=== PATIENT | male | born 1985 | race Caucasian/White ===

== ENCOUNTER 2018-10-29 09:25 | Emergency (ER) | payer MEDICAID, OTHER ==
[~2018-10-29] VITALS: Ht 170.2 cm; Wt 98.5 kg
[2018-10-29 09:50] VITALS: Ht 170.2 cm; Wt 98.5 kg
[2018-10-29] MEDS ORDERED: ONDANSETRON (ODT) 4 MG TAB ODT STA (12:10)
[2018-10-29] MEDS ORDERED: NAPR-985 PO (12:17)
[2018-10-29] MEDS ORDERED: HYDR-4011 PO (12:17)
[2018-10-29] MEDS ORDERED: HYDROCODONE/APAP (5/325) TAB PO ONE (12:30)
[2018-10-29 13:03] VITALS: BP 152/89; PULSE 110; RESP 16
--- NOTE | 2018-10-29 13:10 | ERD ---
ER Documentation Chief Complaint Chief Complaint Complains of left hand ppain after hitting a refrigerator HPI 33-year-old male presenting with pain to left hand. Patient states that he had a refrigerator and it caused him pain. This happened yesterday. He has not taken medications. He is right-hand dominant. Denies medical problems. NKDA. Surgical history denies. Social history denies ROS All systems reviewed and are negative except as per history of present illness. Medications Home Meds Active Scripts Naproxen* (Naprosyn*) 500 Mg Tablet, 500 MG PO BID PRN for PAIN AND/OR INFLAMMATION, #30 TAB Prov:SKY MORENO PA-C 10/29/18 Hydrocodone/Acetaminophen (Goddard 5-325 Tablet) 1 Each Tablet, 1 TAB PO Q6H PRN for PAIN, #7 TAB Prov:SKY MORENO PA-C 10/29/18 Allergies Allergies: Coded Allergies: No Known Allergy (Unverified , 10/29/18) PMhx/Soc Medical and Surgical Hx: pt denies Medical Hx, pt denies Surgical Hx Hx Alcohol Use: No Hx Substance Use: No Hx Tobacco Use: No Smoking Status: Never smoker FmHx Family History: No diabetes, No coronary disease, No other Physical Exam Vitals Vital Signs Date Temp Pulse Resp B/P (MAP) Pulse Ox O2 O2 Flow FiO2 Time Delivery Rate 10/29/18 100.8 110 16 152/89 98 Room Air 13:03 (110) 10/29/18 98.7 115 20 141/92 98 09:50 (108) Physical Exam GENERAL: The patient is well-appearing, well-nourished, in no acute distress CHEST: Clear to auscultation bilaterally. There are no rales, wheezes or rhonchi. HEART: Regular rate and rhythm. No murmurs, clicks, rubs or gallops. EXTREMITIES: Tender to palpation to the base of the right fifth digit. Mild deformity with swelling. Patient is able to isolate the DIP and PIP joint as well as the MCP joint of the fifth digit. No neurovascular deficit. NEUROLOGIC: Alert and oriented. Cranial nerves II through XII intact. Motor strength in all 4 extremities with 5 out of 5 strength. Sensation grossly intact. SKIN: There is no apparent rash or petechiae. The skin is warm and dry. Results 24 hrs Current Medications Medications Dose Sig/James Start Time Status Last (Trade) Ordered Route PRN Stop Time Admin Dose Reason Admin 1 tab ONCE ONCE 10/29/18 DC 10/29/18 Acetaminophen PO 12:30 12:19 / 10/29/18 12:31 Hydrocodone Bitart (Goddard (5/325)) Ondansetron 4 mg ONCE STAT 10/29/18 DC 10/29/18 HCl (Zofran ODT 12:10 12:19 Odt) 10/29/18 12:11 Procedures/MDM DIAGNOSTIC IMAGING REPORT Patient: HINA TOURE : 1985 Age: 33 Sex: M MR #: [id number] DOS: 10/29/18 1119 Ordering MD: ALEKSANDR MORENO PA-C Location: [facility] Room/Bed: PROCEDURE: Left hand x-ray CLINICAL INDICATION: pain TECHNIQUE: AP, lateral and oblique views of the left hand were obtained. COMPARISON: None FINDINGS: There is normal mineralization. There is a possible nondisplaced fracture involving the proximal aspect of the fifth metacarpal. There is associated soft tissue swelling. There are no significant degenerative changes. RPTAT: AA IMPRESSION: Probable nondisplaced fracture involving the proximal aspect of the fifth metacarpal with associated soft tissue swelling. ER Course: Ulnar gutter splint applied in ED. Patient is neuro intact pre-and post splint application. Goddard and Zofran given ED. MDM: 33-year-old male presenting with fracture of the left hand. I have low suspicion for neurovascular deficit. I have low suspicion for tendon or ligament rupture. Patient will be recommended to follow-up with orthopedist for casting. I have low suspicion for vascular injury. Patient is discharged stricter precautions and told to follow-up with primary care within 1-2 days for close evaluation. All questions answered at discharge Departure Diagnosis: Primary Impression: Boxers fracture Condition: Stable Patient Instructions: Fracture, Boxer's Referrals: ZACH LARRY MD [facility] Hours: Mon-Fri 9:00 AM - 5:00 PM Additional Instructions: FOLLOW UP WITH YOUR PRIMARY CARE PHYSICIAN TOMORROW.Return to this facility if you are not improving as expected. SKY MORENO PA-C Oct 29, 2018 13:10
== END 2018-10-29 13:30 | disposition home or self-care (01) ==
LOC: FTE 09:25
DX: S62.307A Unspecified fracture of fifth metacarpal bone, left hand, initial encounter for closed fracture (principal); W22.8XXA Striking against or struck by other objects, initial encounter; Y92.9 Unspecified place or not applicable
CPT/HCPCS: 29125; 73130; Z7502; Z7610